=== PATIENT | female | born 1995 | race Caucasian/White ===

== ENCOUNTER 2023-01-02 14:46 | Emergency (ER) | payer OTHER, SELFPAY ==
--- NOTE | 2023-01-02 14:49 | DI.RAD.S_ITS ---
PROCEDURE: XR ANKLE LT MIN 3V INDICATIONS: fall, left ankle deformity. TECHNIQUE: 3 views of the ankle were acquired. COMPARISON: None. FINDINGS: Bones: Medial malleolar fracture with medial subluxation of the distal tibia over the dome of the talus by over 1 cm, resulting in ankle mortise disruption. Comminuted distal fibular metaphyseal fracture is also noted with angulation. Soft tissues: No tibiotalar joint effusion. Achilles tendon appears normal. IMPRESSION: Medial malleolar fracture, comminuted angulated distal fibular fracture, and lateral subluxation of the talus with complete ankle mortise disruption Approved by: Nba Leavitt M.D. on 01/02/2023 at 16:05
--- NOTE | 2023-01-02 14:50 | ED_ITS ---
HPI - General Adult General Chief complaint: Extremity Injury, Lower Stated complaint: fall from ladder/ LLE fx Time Seen by Provider: 01/02/23 14:47 Source: patient and EMS Mode of arrival: EMS Limitations: no limitations History of Present Illness HPI narrative: Patient is a 27-year-old female who is here for evaluation of a left ankle injury. She was brought in by EMS after sustaining the injury after falling approximately 6 ft off of a ladder. She is an obvious deformity to her left ankle. Was given fentanyl and ketamine prior to arrival. Only injuries from the event reported by the patient and found an exam of the left ankle. Related Data Home Medications Medication Instructions Recorded Confirmed norgestimate-ethinyl estradiol 1 tab PO DAILY 01/02/23 01/02/23 0.18 mg/0.215mg/0.25mg-35 mcg(28)tablet sertraline 100 mg tablet 100 mg PO DAILY 01/02/23 01/02/23 Previous Rx's Medication Instructions Recorded hydrocodone 5 mg-acetaminophen 325 1 tab PO Q4-6H PRN pain #14 tabs 01/02/23 mg tablet Allergies Allergy/AdvReac Type Severity Reaction Status Date / Time honey Allergy Verified 01/02/23 14:57 Review of Systems Musculoskeletal Musculoskeletal: Reports system reviewed and no additional complaints, except as documented Integumentary/Breasts Skin/Breast: Reports system reviewed and no additional complaints, except as documented Neurologic Neurologic: Reports system reviewed and no additional complaints, except as documented Patient History Social History Smoking Status: Never smoker Smoking Status: Never smoker Exam Initial Vital Signs Initial Vital Signs: Vital Signs Pulse Rate 81 01/02/23 14:51 Respiratory Rate 12 01/02/23 14:51 Blood Pressure 138/89 01/02/23 14:51 Pulse Oximetry 96 01/02/23 14:51 Oxygen Delivery Method Room Air 01/02/23 14:51 Const General: cooperative and No ill appearing HENMT Head: normal to inspection and normocephalic Resp Effort & Inspection: normal respiratory effort Cardio Pulses: dorsalis pedis present on the left Skin General: no rashes or lesions noted Neuro General: patient alert, patient awake and moves all extremities Extrem Other: Obvious deformity to left ankle. No discomfort with left proximal fibula. Procedures Orthopedic Splinting/Casting Injury #1: Side: left Lower Extremity Injury Location: ankle Lower Extremity Immobilizer: posterior splint and stirrup splint Other Orthopedic Equipment: crutches Post splinting neuro exam: intact Post splinting vascular exam: intact Placed by: Provider Course Orders Ordered: ED Orders 01/02/23 14:49 XR ankle LT min 3V Stat Discontinued Medications Hydromorphone HCl (Hydromorphone 1 Mg Inj) 1 mg IV NOW ONE Stop: 01/02/23 15:28 Last Admin: 01/02/23 15:32 Dose: 1 mg Documented By: ST Morphine Sulfate (Morphine 4 Mg/Ml Inj) 4 mg IV NOW ONE Stop: 01/02/23 14:56 Last Admin: 01/02/23 14:59 Dose: 4 mg Documented By: ST Vital Signs Vital signs: Vital Signs - 8 hr 01/02/23 14:51 01/02/23 14:52 01/02/23 14:53 Pulse Rate 81 86 Respiratory Rate 12 19 Blood Pressure 138/89 138/89 Pulse Oximetry 96 97 Oxygen Delivery Method Room Air 01/02/23 15:00 01/02/23 15:00 01/02/23 15:30 Pulse Rate 79 Respiratory Rate 20 Blood Pressure 139/86 114/71 Pulse Oximetry 100 Oxygen Delivery Method 01/02/23 15:30 01/02/23 16:00 Pulse Rate 76 76 Respiratory Rate 28 H 25 H Blood Pressure Pulse Oximetry 98 98 Oxygen Delivery Method Medical Decision Making Imaging Data Extremity x-ray #1: My Impression: Left ankle fracture MDM Narrative Medical decision making narrative: Patient did fall from a ladder. Only injuries are left ankle fracture. She is alert oriented x3. Not on blood thinners. Left ankle fracture splinted as described above. Patient was given return precautions and follow-up instr uctions. She expressed understanding and agreement. Discharge Plan Departure Patient Disposition: Home Clinical Impression: Ankle fracture, left Instructions: How to Use Crutches, DI for Ankle Fracture, How to Take Care of Your Splint Activity Restrictions/Additional Instructions: You do need to keep the splint on. You need to treat it like a cast and keep it clean and keep it dry. Do not walk on your left leg. Contact the Orthopedic Department at the number provided below for follow-up. Return to the emergency department for new symptoms. Prescriptions: New hydrocodone-acetaminophen 5-325 mg tablet 1 tab PO Q4-6H PRN (Reason: pain) Qty: 14 0RF No Action sertraline 100 mg tablet 100 mg PO DAILY norgestimate-ethinyl estradiol 0.18/0.215/0.25 mg-35 mcg (28) tablet 1 tab PO DAILY Referrals: Mary Banda MD [Physician] - Miscellaneous,MD Marquis [Primary Care Provider] - Stand Alone Forms: Patient Portal/API
[2023-01-02 14:51] VITALS: BP 138/89; PULSE 81; RESP 12; O2SAT 96; BMI 27.4
[2023-01-02 14:52] VITALS: BP 138/89
[2023-01-02 14:53] VITALS: PULSE 86; RESP 19; O2SAT 97
[2023-01-02] MEDS: MORPHINE 4 MG/ML INJ IV (14:59)
[2023-01-02 15:00] VITALS: BP 139/86; PULSE 79; RESP 20; O2SAT 100
[2023-01-02 15:30] VITALS: BP 114/71; PULSE 76; RESP 28; O2SAT 98
[2023-01-02] MEDS: HYDROMORPHONE 1 MG INJ IV (15:32)
[2023-01-02 16:00] VITALS: BP 108/71; PULSE 76; RESP 25; O2SAT 98
== END 2023-01-02 16:30 | disposition home or self-care (01) ==
PROVIDERS: Emergency Provider Emergency Medicine
DX: S82.832A Other fracture of upper and lower end of left fibula, initial encounter for closed fracture (principal); S82.52XA Displaced fracture of medial malleolus of left tibia, initial encounter for closed fracture; W11.XXXA Fall on and from ladder, initial encounter
CPT/HCPCS: 73610; 96374; 96375; 99283; 99284; J1170; J2270

== ENCOUNTER 2023-01-05 14:37 | Emergency (ER) | payer OTHER, SELFPAY ==
[2023-01-05] VITALS (23 sets, daily range): BP systolic 111–144; BP diastolic 67–89; PULSE 76–92; RESP 15–18; TEMP 36.5–36.7; O2SAT 96–99; BMI 27.4
--- NOTE | 2023-01-05 14:43 | DI.RAD.S_ITS ---
PROCEDURE: XR ANKLE LT MIN 3V INDICATIONS: known fx, sent by ortho to re-image, possible reduction TECHNIQUE: 3 views of the ankle were acquired. COMPARISON: [facility], , XR ANKLE LT MIN 3V, 01/02/2023, 15:02. FINDINGS: Bones: Comminuted displaced fracture of the distal tibia and fibula redemonstrated without significant interval change in alignment. Fiberglass splint material is present. Soft tissues: No tibiotalar joint effusion. Achilles tendon appears normal. IMPRESSION: Comminuted displaced bimalleolar fractures without significant change in alignment when compared to 01/02/2023. Approved by: Jasson Do M.D. on 01/05/2023 at 15:09
--- NOTE | 2023-01-05 14:51 | ED_ITS ---
HPI - General Adult General Chief complaint: Extremity Injury, Lower Stated complaint: lt foot reduce and rewrap/dr ref Time Seen by Provider: 01/05/23 14:43 Source: patient Mode of arrival: Wheelchair History of Present Illness HPI narrative: 27-year-old female nonsmoker was sent from the orthopedic office for evaluation of a recently fractured left ankle. She was seen and evaluated a few days ago and had an obvious fracture and was splinted, encouraged to follow up with Ortho, she states that her insurance took longer than expected to approve the referral and when she went to the office today they were unable to see her, stated that they wanted her sent back here for an attempt at reducing her ankle fracture dislocation. Related Data Home Medications Medication Instructions Recorded Confirmed norgestimate-ethinyl estradiol 1 tab PO DAILY 01/02/23 01/02/23 0.18 mg/0.215mg/0.25mg-35 mcg(28)tablet sertraline 100 mg tablet 100 mg PO DAILY 01/02/23 01/02/23 Previous Rx's Medication Instructions Recorded hydrocodone 5 mg-acetaminophen 325 1 tab PO Q4-6H PRN pain #14 tabs 01/02/23 mg tablet Allergies Allergy/AdvReac Type Severity Reaction Status Date / Time honey Allergy Verified 01/05/23 14:48 Review of Systems Review of Systems Narrative: GENERAL: Denies chills, fatigue, malaise, fever, sweats. HEENT: Denies sinus pain, ear pain, sore throat, difficulty swallowing, dizzi ness. RESPIRATORY: Denies dyspnea, cough, wheezing, hemoptysis, sputum. CARDIOVASCULAR: Denies chest pain, palpitations, orthopnea, edema, GASTROINTESTINAL: Denies nausea, vomiting, abdominal pain, diarrhea, constipation, melena. : Denies dysuria, frequency, incontinence, hematuria, urinary retention. MUSCULOSKELETAL: See HPI SKIN: Denies rash, skin lesions, or other NEUROLOGIC: See HPI PSYCHIATRIC: No concerning psychosocial issues. 12 point review of systems is negative except for those stated above Patient History Social History Smoking Status: Never smoker Smoking Status: Never smoker alcohol intake frequency: 0-2 drinks per day Substance Use Type: marijuana, crack/cocaine and hallucinogens Exam Narrative Exam Narrative: GENERAL: [27] year old patient appears stated age. Well-developed patient, in mild distress. HEAD: Atraumatic. Normocephalic. EYES: Pupils equal round and reactive. Extraocular motions intact. No scleral icterus. No injection or drainage. ENT: Nose without bleeding, purulent drainage. Throat without erythema, tonsillar hypertrophy or exudate. Airway patent. NECK: Trachea midline. Non tender CARDIOVASCULAR: Regular rate and rhythm without murmurs, gallops, or rubs. RESPIRATORY: Clear to auscultation. Breath sounds equal bilaterally. No wheezes, rales, or rhonchi. GASTROINTESTINAL: Abdomen soft, non-tender, nondistended. EXTREMITIES: Splinted, obvious deformity, closed, isolated and neurovascularly intact. When splint removed there is expected ecchymosis, it is closed, isolated, N/V in tact. 2 small fracture blisters noted over the medial malleolus BACK: Nontender without deformity or crepitance. No flank tenderness. NEURO: AOx3. SKIN: No rash or erythema of visible areas Initial Vital Signs Initial Vital Signs: Vital Signs Temperature 97.7 F 01/05/23 14:40 Pulse Rate 80 01/05/23 14:40 Respiratory Rate 15 01/05/23 14:40 Blood Pressure 117/74 01/05/23 14:40 Pulse Oximetry 97 01/05/23 14:40 Oxygen Delivery Method Room Air 01/05/23 14:40 Procedures Orthopedic Fracture Reduction Fracture #1: Time Out Performed: Yes Side: left Fracture Reduction Location: tibia and fibula Technique: direct manipulation and traction/counter-traction Post Reduction X-rays Demonstrate: acceptable reduction Post-reduction neuro exam: intact Post-reduction vascular exam: intact Splint Applied: Yes Patient Tolerated Procedure: Well Orthopedic Splinting/Casting Injury #1: Side: left Lower Extremity Injury Location: ankle Lower Extremity Immobilizer: posterior splint and stirrup splint Other Orthopedic Equipment: crutches Post splinting neuro exam: intact Post splinting vascular exam: intact Placed by: Provider Procedural Sedation Consent signed: Yes Time out performed: Yes Indication: fracture/dislocation reduction ASA Class: I Mallampati Airway Classification: Class II Preparation: information systems project manager applied, pulse oximeter, capnometry used, supplemental O2 applied, suction/airway equipment at bedside and IV secured IV Propofol dose (mg): 130 Intraservice time/total sedation time (min): 12 ED Sedation Level: Moderate (Concious) Patient Tolerated Procedure: Well Complications: none Course Orders Ordered: Discontinued Medications Propofol (Propofol 200 Mg/20 Ml Vial) 75 mg 1 mg/kg (75 mg) IV NOW ONE Stop: 01/05/23 15:56 Last Admin: 01/05/23 17:20 Dose: Not Given Documented By: SB Propofol (Propofol 200 Mg/20 Ml Vial) 110 mg IV NOW ONE Stop: 01/05/23 16:46 Last Admin: 01/05/23 17:29 Dose: 110 mg Documented By: SB Consultations Consultation #1: Discussed with ortho (Dr. Banda). We have reviewed the case, including post reduction films and agree that there is acceptable alignment with some improvment over prior Vital Signs Vital signs: Vital Signs - 8 hr 01/05/23 14:40 Temperature 97.7 F Pulse Rate 80 Respiratory Rate 15 Blood Pressure 117/74 Pulse Oximetry 97 Oxygen Delivery Method Room Air Medical Decision Making Lab Data Labs: Point of Care Testing Test Results Negative Point of care testing: Point of Care Testing Test Results Negative MDM Narrative Medical decision making narrative: [27] year old patient presents with left ankle fracture Multiple etiologies for patient's symptoms considered including, but not limited to: [Fracture with some dislocation versus other] Prior Charts reviewed in our EMR Primary Historian: patient Imaging reviewed: Some improved alignment after reduction Consultations: Discussed with ortho as noted above Patient's symptoms improved over duration of stay with above-stated therapies. Findings and discharge diagnosis discussed with patient/family followed by verbalization of understanding Return precautions discussed with patient/family whom verbalize understanding of diagnosis and plan Discharge Plan Departure Patient Disposition: Home Clinical Impression: Ankle fracture, left Instructions: DI for Ankle Fracture Activity Restrictions/Additional Instructions: *You have been diagnosed with [left ankle trimalleolar fracture] *What to do: *Please continue to take your regular medications as directed. [ ] New medication prescriptions sent to your pharmacy: [ ] [ ] New medication written as a paper prescription [x] Tylenol and occasional Motrin for pain *Please follow up with [Veronika] of [facility] in 2-3 days, call for an appointment. Let them know you were seen in the Emergency Department and that we ask that you be seen in follow up. We will electronically transmit a record of today's note if your PCP is in our system *Return to Emergency Department if you should have any new, worsening or concerning symptoms, such as [worsening pain, significant swelling, cold extremities, numbness, tingling, weakness or other bothersome symptoms Splint Care: Keep splint clean and dry. Elevated affected body part to decrease swelling. OK to use ice pack on the affected body part. Use for 15-20 minutes each time, for 5-6x per day. If you develop worsening pain, numbness, tingling, discoloration of the affected body part, loosen the splint by loosening the YUNIER wrap, and either see your doctor for an urgent re-assessment, or return to the Emergency Department. Return to the Emergency Department for any new or worsening symptoms. Prescriptions: No Action sertraline 100 mg tablet 100 mg PO DAILY norgestimate-ethinyl estradiol 0.18/0.215/0.25 mg-35 mcg (28) tablet 1 tab PO DAILY hydrocodone-acetaminophen 5-325 mg tablet 1 tab PO Q4-6H PRN (Reason: pain) Qty: 14 0RF Referrals: Miscellaneous,Doctor, [Primary Care Provider] - Stand Alone Forms: Patient Portal/API
--- NOTE | 2023-01-05 17:11 | DI.RAD.S_ITS ---
PROCEDURE: XR ANKLE LT MIN 3V INDICATIONS: post-reduction TECHNIQUE: 3 views of the ankle were acquired. COMPARISON: [facility], [place], XR ANKLE LT MIN 3V, 01/02/2023, 15:02. [facility], [place], XR ANKLE LT MIN 3V, 01/05/2023, 14:49. FINDINGS: Bones: There is a moderately displaced medial malleolar fracture. There is a comminuted, moderately displaced distal fibular fracture. The fractures are slightly better aligned on the current study than on the prior. There is widening of the syndesmosis and the ankle mortise. Soft tissues: Soft tissue swelling is seen. The overlying casting material limits evaluation of fine detail. IMPRESSION: Slightly improved alignment of the fractures. Dictated by: Panfilo Kuo M.D. on 01/05/2023 at 17:24 Approved by: Panfilo Kuo M.D. on 01/05/2023 at 17:25
[2023-01-05] MEDS: propofoL 200 MG/20 ML VIAL 110 MG IV (17:29)
== END 2023-01-05 18:06 | disposition home or self-care (01) ==
PROVIDERS: Emergency Provider Emergency Medicine
DX: S82.842A Displaced bimalleolar fracture of left lower leg, initial encounter for closed fracture (principal)
CPT/HCPCS: 27752; 29515; 73610; 81025; 99152; 99284; J2704

== ENCOUNTER → 2023-03-04 12:28 | Outpatient (CLI) | payer OTHER, SELFPAY ==
--- NOTE | 2023-03-04 12:53 | DI.CT.S_ITS ---
PROCEDURE: CT LE LT W CON INDICATIONS: Displaced bimalleolar fracture of left lower leg TECHNIQUE: Noncontrast 1-1.5 mm axial sections acquired from above the tibiotalar joint to the bottom of the calcaneus, with coronal and sagittal reformats. COMPARISON: [facility] [place], [place], XR ANKLE 3+ VIEWS LEFT, 02/22/2023, 14:43. [facility], CR, XR ANKLE LT MIN 3V, 01/02/2023, 15:02. [facility], [place], XR ANKLE LT MIN 3V, 01/05/2023, 17:09. FINDINGS: Image quality: Excellent. Bones: Expected appearance of ORIF of bimalleolar fractures. There are medial malleolar screws and side plate and multiple screw fixation of the distal fibula. There is a very subtle nondisplaced crack fracture of the talus which extends from the tibiotalar joint to the inferior articulation of the talus. Soft tissues: Unremarkable IMPRESSION: 1. Expected appearance of orthopedic surgical hardware, transfixing medial malleolar and distal fibular fractures. 2. Very subtle nondisplaced vertical crack fracture of the talus. Dictated by: Layo Dunn M.D. on 03/04/2023 at 19:55 Approved by: Layo Dunn M.D. on 03/04/2023 at 19:59
== END ==
PROVIDERS: Referring Provider Orthopaedic Surgery; Visit Provider Orthopaedic Surgery
DX: S82.842A Displaced bimalleolar fracture of left lower leg, initial encounter for closed fracture (principal); X58.XXXA Exposure to other specified factors, initial encounter
CPT/HCPCS: 73700

== ENCOUNTER 2023-04-20 12:28 | Day surgery (SDC) | payer OTHER, SELFPAY ==
[2023-04-17 14:06] VITALS: BMI 27.8
--- NOTE | 2023-04-20 | DI.RAD.S_ITS ---
PROCEDURE: XR ANKLE LT MIN 3V INDICATIONS: REVISION MALUNION LEFT ANKLE TECHNIQUE: Multiple frontal and lateral spot fluoroscopic intraoperative images of the left ankle. COMPARISON: [facility], CR, XR ANKLE 3 VIEWS WEIGHT BEARING LEFT, 03/21/2023, 14:45. [facility], [place], CT LE LT WO CON, 03/04/2023, 12:44. [facility], [place], XR ANKLE LT MIN 3V, 01/05/2023, 17:09. [facility], CR, XR ANKLE LT MIN 3V, 01/05/2023, 14:49. FINDINGS: Multiple fluoroscopic intraoperative images demonstrate postsurgical changes from revision fixation of the previously seen distal tibial and fibular fractures and talar fracture. Medial malleolar screws have been removed. Osseous alignment appears anatomic. IMPRESSION: Intraoperative images demonstrate changes from revision fixation of bimalleolar and talar fractures. Osseous alignment appears anatomic. Approved by: Jasson Do M.D. on 04/20/2023 at 22:05
--- NOTE | 2023-04-20 07:41 | P.HP_ITS ---
History of Present Illness History of Present Illness Date Patient Seen: 04/20/23 Time Patient Seen: 07:41 Chief complaint: Left ORIF Ankle Fracture Narrative: 27-year-old female status post right ankle fracture dislocation sustained January 02, 2023 when she fell 10-12 feet from window. She would a left ankle fracture dislocation and open reduction internal fixation with 1 of my partners on 01/09/2023. Due to the highly comminuted nature of the fracture there is some concern for obtaining alignment length of the fibula. She is been attempting to progress weight-bearing the walking boot but is having pain and relying on assistive devices. Most of her ankle pain is lateral and worse with weight- bearing. She was found to have talar osteochondral lesion and nondisplaced talar fracture and has an ankle malunion with shortening of the fibula. She is indicated for revision ankle open reduction internal fixation as well as addressing her talar osteochondral lesion and talar fracture. We discussed hardware removal and ankle revision. Patient understands would like to proceed with surgery. [facility] Medical History Closed left ankle fracture (01/02/23) Surgical History History of open reduction and internal fixation (ORIF) procedure (01/09/23) Social History household members: spouse Smoking Status: Never smoker alcohol intake: current Meds Home Medications and Allergies Home Medications Medication Instructions Recorded Confirmed Type sertraline 100 mg tablet 100 mg PO DAILY 01/02/23 04/20/23 History Allergies Allergy/AdvReac Type Severity Reaction Status Date / Time honey Allergy Verified 04/20/23 14:48 Review of Systems Review of Systems ROS: Yes All systems reviewed with the patient and are negative except as otherwise documented Exam Narrative Exam Narrative: General exam alert oriented no acute distress HEENT exam normocephalic atraumatic Heart regular rate and rhythm Lungs clear to auscultation Left lower extremity examination shows grossly normal alignment limited range of motion 5-30 degrees. Healed surgical scars. Mild swelling and tenderness to palpation anterolateral lateral ankle with deep aching pain. Calf is soft. Achilles intact. Decreased sensation along the superficial peroneal nerve distribution without specific Tinel's. Palpable dorsalis pedis pulse. No pain at the 5th metatarsal base. No pain at the proximal fibula. Assessment & Plan Assessment and plan (1) Closed fracture of left ankle with malunion: Status: Acute (2) Osteochondral lesion of talar dome: Status: Acute (3) Talus fracture: Status: Acute Plan The patient had a highly comminuted fibula fracture as part of her bimalleolar ankle fracture dislocation. Her surgical fixation was appropriate but she is 3- 4 mm short on her fibula and also has a traumatic osteochondral lesion of the talar dome this may have been a nondisplaced vertical lateral talus fracture it is not demonstrated on the initial radiographs that is seen subtly on the CT scan. OCL size 9 x 12 x 4 mm. I discussed the cartilage injury that occurred at the time of her injury as a risk factor to go onto faster and more progres sive posttraumatic arthritis. Discussed consideration of cartilage lesion repair with removal of unstable fragments and grafting. Discussed the risks for symptomatic posttraumatic arthritis. Also discussed hardware removal and malunion revision with fibular lengthening. Patient would like to proceed with surgery. The risks and benefits of the procedure have been discussed with the patient and given the opportunity to ask questions. The risks of surgery include but are not limited to infection, malunion, nonunion, persistence of pain, damage to nerves and blood vessels, posttraumatic arthritis, DVT, PE, coardiopulmonary complications and . The patient expressed a thorough understanding of the risks and benefits of surgery and has elected to proceed. Consent was signed. Assessment & Plan narrative: Patient has a left ankle malunion and talus fracture with osteochondral lesion. This was a highly comminuted fracture with a insidious talus fracture that was not evident except on the postoperative CT scan. She does now have irregularity that is demonstrated of the talar dome. She is indicated for ankle revision with fibular lengthening, syndesmotic revision and addressing the talus fracture and osteochondral lesion. She also has painful medial hardware is indicated for medial hardware removal. We discussed risks benefits and alternatives to the procedure. 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 She is indicated for revision surgery to reduce the risk of posttraumatic arthritis. We discussed using cartilage allograft. The risks and benefits of the procedure have been discussed with the patient and given the opportunity to ask questions. The risks of surgery include but are not limited to infection, malunion, nonunion, persistence of pain, damage to nerves and blood vessels, posttraumatic arthritis, DVT, PE, coardiopulmonary complications and . The patient expressed a thorough understanding of the risks and benefits of surgery and has elected to proceed. Consent was signed. Quality VTE Deep Vein Thrombosis/Pulmonary Embolism Present on Admission: No
[2023-04-20 14:57] VITALS: BP 114/78; PULSE 82; RESP 16; TEMP 36.2; O2SAT 98; BMI 27.8
[2023-04-20] MEDS: LACTATED RINGERS 1,000 ML 42 ML IV ×2 (15:20→17:00)
--- NOTE | 2023-04-20 16:13 | PM.OP.1 ---
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 Revision left ankle malunion with fibula osteotomy and fixation CPT code 53177, left 2. ORIF talus left CPT code 28111 3. Unlisted procedure left leg ankle CPT code 55065 compare with 36723 : Fixation osteochondral lesion left talus with cartilage allograft 4. Removal of deep implant left fibula CPT code 30532 5. Removal of implants left talus separate incision medial malleolar hardware removal CPT code 93305+ 59 for separate site separate incision Same procedure as scheduled: Yes Indications: Patient is a [age]-year-old female that had a highly comminuted ankle fracture part of an ankle fracture dislocation. She would a previous open reduction internal fixation by another surgeon. Due to the highly comminuted nature of her fibula fracture she had shortening and malunion as well as a traumatic osteochondral lesion of her lateral talar dome and nondisplaced talar fracture. This was originally not visible on plain imaging but irregularity of the cartilage surface became visible during postoperative followups and was determined on the CT scan. She was indicated for revision of her ankle malunion and addressing the talus fracture and osteochondral lesion. And fibular lengthening. A goal of revision face to help with the alignment address the cartilage lesion and reduce the risks of posttraumatic ankle arthritis. The patient understands that she does already have a cartilage lesion and has had intra-articular injury which are risk factors for posttraumatic arthritis. The risks and benefits of the procedure have been discussed with the patient and given the opportunity to ask questions. The risks of surgery include but are not limited to infection, malunion, nonunion, persistence of pain, damage to nerves and blood vessels, posttraumatic arthritis, DVT, PE, complications and . The patient expressed a thorough understanding of the risks and benefits of surgery and has elected to proceed. Consent was signed. Surgeon: Mary Banda Click Yes if Unassisted: Yes Anesthesia Type: General Operative Notes Findings: Left ankle malunion with shortened fibula. Nondisplaced vertical talus fracture with osteochondral lesion full-thickness cartilage loss lateral talus Medial ankle hardware, 2 screws was removed Lateral ankle hardware 2 plates and screws were removed. Fibula was shortened this was then lengthened through a oblique osteotomy there was copious scar tissue and callus in order to lengthen the fibula and expose the talus osteochondral lesion syndesmosis was formally opened to mobilize the distal fibula and provide visualization exposure to the lateral talar dome which demonstrate of the osteochondral lesion proximally 1 x 1 cm and full-thickness cartilage loss. The vertical talus fracture was nondisplaced and was reinforced with a 3.5 headless compression screw from the Arthrex set. The osteochondral lesion was then debrided to a stable base and drilled and then allograft morselized cartilage mixed with platelet rich plasma and placed into the lesion and sealed with fibrin glue. Then the fibula was lengthened. A locking plate from the Arthrex set was secured distally to the fibula then a push-pull screw was placed outside the plate proximally and a laminar wrecking crane engine operator was used to lengthen and this was secured with locking screws proximally. The syndesmosis was then secured using a suture button device and reinforced with a tricortical screw All implants used were titanium to facilitate future MRI should this patient require due to the known talus osteochondral lesions. Closure Type: primary Specimen(s): none sent Prosthetic devices, grafts, tissues, transplants, or devices: Fibula osteotomy and lengthening: Arthrex lateral locking plate 6 hole locking plate. 2.7 locking screws distally and 3.5 locking screws proximally. Syndesmotic fixation: Arthrex titanium tightrope Xp. 40 mm 3.5 titanium cortical screw Talus osteochondral lesion: Arthrex bio cartilage cartilage allograft mixed with platelet rich plasma and fibrin glue Talus fracture: 3.5 headless cannulated screw Estimated Blood Loss (mL): 20 Blood products transfused: none Tourniquet time (min): 112 Procedure in detail: Patient was seen in the preoperative area the site of surgery was marked informed consent confirmed. The patient was then brought back to the operating room by the anesthesia team. Regional block was placed for postoperative pain control by the anesthesia team. General anesthetic was administered. The bony prominences were well padded. Well-padded thigh tourniquet was placed. The operative extremity was prepped and draped in the standard sterile fashion. A formal time-out procedure was performed confirming the patient's side and site of surgery administration of appropriate preoperative antibiotic. All were in agreement. Attention was turned to the left lower extremity. Medial malleolar hardware removal: Attention was 1st turned medially in the medial incision over the medial malleolus was reopened. Dissection was taken through the skin subcutaneous tissues. Bovie cautery was used to help remove the scar tissue over the 4.0 cannulated screws. The anterior and posterior screw were then exposed and the screwdriver used to remove the screws. Once this was completed the wound was irrigated and closed with 4-0 Monocryl and 3-0 nylon suture. Next attention was turned laterally and the previous lateral incision was extended more distally and curved anteriorly and extended proximally. The keloid scar was excised. Dissection was taken down through the subcutaneous tissues there was copious scar. The fibula and plates were exposed using the Bovie cautery and sharp debridement. There was an anterior and a posterior lateral plate. These were exposed and appropriate screwdrivers were used to remove the anterior and posterolateral plates that were from the [employer] set. All hardware was removed. Next attention was turned to the fibular malunion this was shortened TTS saw was used to make an oblique osteotomy and a sharp scalpel as well as the osteotomes were used to free up the distal fibula and dissect the syndesmosis as the distal fibula was otherwise not mobile. The dissection was carried anteriorly to formally open and debride the syndesmosis this also exposed the lateral tibiotalar joint and the large lateral talar dome osteochondral lesion was visualized. This included full-thickness cartilage loss proximally 1 cm x 1 cm. The talus vertical fracture was nondisplaced. This was secured with a 3.5 cannulated screw from the Arthrex set from a lateral to medial direction to act as a compressive reinforcement. Next attention was turned to the osteochondral lesion this was debrided to a stable base along the cartilage and the exposed subchondral bone was debrided and then drilled to stimulate blood flow. The cartilage allograft was mixed with platelet rich plasma which was drawn from the patient's blood and spun down to growth factors. This was then placed in the bed of the osteochondral lesion with care to make sure this was not proud. This was then sealed with Tisseel fibrin glue. 5 minute drying time was allowed to elapse and the fixation was stable and matched the contour of the talar dome and tibial plafond. Next attention was turned to fixing the fibular lengthening osteotomy and ankle malunion. The lateral locking fibular plate from the Arthrex set was selected this was a 6 hole plate this was secured distally to the distal fibula with a BB tack and then locking screws that were 2.7. Next proximally a cortical screw was placed in the fibula proximal to the plate end and left proud. The toothed lamina wrecking crane engine operator was placed in between the screw and the plate and used to distract and provide lengthening through the osteotomy. This was done repeatedly working on gaining length of the fibula. Proximally 3-4 mm was able to be obtained and this was secured 1st with a BB tack and then with locking screws proximally to hold the lengthening. This was scrutinized under multiple plane intraoperative fluoroscopy for length and alignment to restore the mortise and fibular length and dime signed as best as I could. There was a lot of scarring in length was difficult to obtain. Once I felt I got all the length that I could get and the x-ray was appropriate the fixation was finalized. Next the syndesmosis was open reduced and clamped using a Polanco clamp after thumb pressure. This was then secured with a suture button device and reinforced proximally with a tricortical screw due to the gross debridement of the syndesmosis for the procedure. Final fluoroscopic x-rays were obtained in AP mortise lateral and stress x-rays demonstrated appropriate alignment length mortise and improvement in the contours of the talar dome. Instruments were removed the wound was irrigated tourniquet was released and the wound was closed with 2-0 Vicryl 4-0 Monocryl and 3-0 nylon sutures. Additional 10 cc of 0.25% Marcaine with epinephrine was injected for local anesthetic. A sterile dressing with Xeroform gauze and Webril and posterior and U splint was applied. Patient was woken from anesthesia and taken to the recovery room in good condition. There were no immediate complications with this procedure. All counts were correct. Complications: none Post-operative Condition: stable Disposition: PACU Plan for aftercare: Nonweightbearing x6 weeks. Elevate heart level or above as much as possible 1st 2 weeks after surgery. Splint. Aspirin for DVT prophylaxis. Follow up in clinic in 2 weeks for suture removal and placement into a walking boot. Patient will be nonweightbearing for 6 weeks but may start some gentle range of motion once removed from the splint.
[2023-04-20] MEDS: CEFAZOLIN 2 GM/100 ML PREMIX 100 ML IV (16:23)
--- NOTE | 2023-04-20 16:37 | SUR.PREOP ---
Block start time [1559] . Monitoring initiated and maintained throughout procedure. Oxygen and medications given per anesthesiologist. Patient remained stable throughout procedure, no adverse reactions noted. Block end time [1616 ].
--- NOTE | 2023-04-20 16:51 | SUR.OPER ---
Supine on padded OR bed, head on pillow, arms secured on padded arm boards at <90 degrees abduction, legs uncrossed, safety belt at waist , tape over blanket over lower right leg, left leg draped free with gel bump under left hip, blanket stack secured under left lower leg.
[2023-04-20] MEDS: BUPIVACAINE 0.25% (PF) 30 ML, EPINEPHrine 0.15 MG INJ (17:01)
[2023-04-20 19:07] VITALS: BP 95/40; PULSE 87; RESP 10; TEMP 36.7; O2SAT 100
[2023-04-20 19:12] VITALS: BP 91/47; PULSE 95; RESP 18; O2SAT 100
[2023-04-20 19:17] VITALS: BP 107/40; PULSE 94; RESP 16; O2SAT 100
[2023-04-20 19:32] VITALS: BP 105/69; PULSE 91; RESP 20; O2SAT 100
[2023-04-20 19:47] VITALS: BP 111/68; PULSE 88; RESP 15; TEMP 36.3; O2SAT 100
== END 2023-04-20 19:55 | disposition home or self-care (01) ==
PROVIDERS: PCP Family Medicine; Referring Provider Orthopaedic Surgery Foot and Ankle Surgery; Visit Provider Orthopaedic Surgery Foot and Ankle Surgery
PROC: (CPT 28445; principal; 2023-04-20 13:45)
DX: S82.892P Other fracture of left lower leg, subsequent encounter for closed fracture with malunion (principal); M95.8 Other specified acquired deformities of musculoskeletal system; S92.125A Nondisplaced fracture of body of left talus, initial encounter for closed fracture; G89.18 Other acute postprocedural pain
CPT/HCPCS: 28445; 20680 ×2; 27707; 28899; 64450; 73610; 76000; C1713; J0171; J0330; J0690; J2250; J2704; J3010

== ENCOUNTER 2023-07-25 14:31 | Emergency (ER) | payer OTHER, SELFPAY ==
[2023-07-25] VITALS (9 sets, daily range): BP systolic 97–116; BP diastolic 64–76; PULSE 80–89; RESP 18; TEMP 37.1; O2SAT 92–100; BMI 28.3
--- NOTE | 2023-07-25 14:49 | DI.US.S_ITS ---
PROCEDURE: US OB <= 14 WEEKS FETUS INDICATIONS: CRAMPING OUTSIDE/PRIOR DATING DATA: Last menstrual period (LMP): Unknown LMP-based estimated date of delivery (LIBIA): Unknown First dating scan (date and location): 07/25/2023 Estimated date of delivery (LIBIA) from first dating scan: 03/06/2024 The calculations are made using the working LIBIA of 03/06/2024. TECHNIQUE: Real-time scanning was performed of the fetus and maternal pelvic organs, with image documentation. Endovaginal scanning was also performed to better visualize the fetus and maternal ovaries. COMPARISON: None. FINDINGS: Embryo: Single intrauterine gestational sac is seen with fetus and yolk sac seen. [place]-rump length measures 1.5 cm. Estimated gestational age is 7 weeks, 6 days. Heart rate: 155 beats per minute. There is suggestion of a small perigestational hematoma measures 2.8 x 1.1 x 0.1 cm in size. Maternal organs: Bilateral ovaries are visualized and are within normal limits. Possible small corpus luteum in left ovary is seen measures 0.9 cm in size. IMPRESSION: 1. Single live intrauterine gestation with fetus and yolk sac seen. Estimated gestational age is 7 weeks, 6 days. heart rate is 155 beats per minute. 2. Possible small perigestational hematoma as above. Possible small corpus luteal cyst in left ovary. We strive to produce accurate, complete, and clear reports of imaging services. To assist us in improving patient care, this report was composed using standard report templates and voice recognition software. Therefore, it may contain abnormal punctuation, insertions and/or omissions. Occasional wrong-word or sound-alike substitutions may occur. Though we review the report and make efforts to correct it, we do recommend that the report be read carefully in proper context to recognize any text inaccuracies. Dictated by: Adonay John M.D. on 07/25/2023 at 16:21 Approved by: Adonay John M.D. on 07/25/2023 at 16:22
[2023-07-25 15:16] LABS: Add Manual Diff / Slide Review NO; Basophils Absolute Auto 0 /uL (0-100); Basophils Percent Auto 0.4 % (0-2); Eosinophils Absolute Auto 100 /uL (0-450); Eosinophils Percent Auto 1.9 % (2-4); Hematocrit 37.5 % (36-46); Hemoglobin 13.1 g/dL (12.0-16.0); Lymphocytes Absolute Auto 2200 /uL (1100-4500); Lymphocytes Percent Auto 30.1 % (25-40); Mean Corpuscular HGB Conc 34.8 % (30-36); Mean Corpuscular Hemoglobin 32.4 PG (26-34); Monocytes Absolute Auto 500 /uL (0-900); Monocytes Percent Auto 7.4 % (3-14); Neutrophils Absolute Auto 4400 /uL (1500-7000); Neutrophils Percent Auto 60.2 % (50-75); Platelet Count 286 X10^3/uL (150-400); Red Blood Cell Count 4.03 X10^6/uL (4.0-5.2); Red Cell Distribution Width 12.7 % (11.6-14.8); White Blood Cell Count 7.3 X10^3/uL (4.5-11.0)
[2023-07-25 15:16] LABS: Appearance Urine UA CLEAR; Bilirubin Urine UA NEGATIVE (NEGATIVE); Color Urine UA YELLOW; Glucose Urine UA NEGATIVE (Negative); Ketones Urine UA NEGATIVE (NEGATIVE); Leukocyte Esterase Urine UA NEGATIVE (NEGATIVE); Nitrite Urine UA NEGATIVE (Negative); Occult Blood Urine UA NEGATIVE (Negative); Protein Urine UA NEGATIVE (Negative); Urobilinogen Urine UA 0.2 E.U./dL (0.2)
[2023-07-25 15:21] LABS: pH Urine UA 7.5 (4.5-8.0)
[2023-07-25 15:24] LABS: Bacteria Urine None Seen; RBC Urine None Seen (0-5/HPF); Squamous Epithelial Cell Urine 0-1 /HPF (0-5/HPF); Urine Volume 10mL (spun); WBC Urine None Seen (0-5/HPF)
[2023-07-25 15:25] LABS: Culture Indicated Urine Cult Not Indicated; Transitional Epi Cells Urine 0-1/HPF (0-5/HPF)
--- NOTE | 2023-07-25 15:36 | PC.NURSE ---
Pt placed in tx room at 1535.
[2023-07-25 15:37] LABS: Alanine Aminotransferase 14 IU/L (<35); Albumin 4.7 g/dL (3.5-5.0); Albumin Globulin Ratio 1.3 (1.0-2.8); Alkaline Phosphatase 62 U/L (38-126); Aspartate Aminotransferase 21 IU/L (14-36); BUN Creatinine Ratio 10.2 (6-22); Bilirubin Total 0.5 mg/dL (0.2-1.3); Blood Urea Nitrogen 5 mg/dL (7-17); Calcium 9.2 mg/dL (8.4-10.2); Carbon Dioxide 27 mmol/L (22-32); Chloride 103 mmol/L (98-107); Estimated Glomerular Filt Rate > 60 mL/min (>60); Globulin 3.6 g/dL (1.7-4.1); Glucose 91 mg/dL (70-100); HEMOLYSIS < 15 (0-50); Potassium 3.8 mmol/L (3.4-5.1); Sodium 135 mmol/L (137-145); Total Protein 8.3 g/dL (6.3-8.2)
[2023-07-25 16:24] LABS: HCG Quantitative /Beta subunit 38880 mIU/mL
--- NOTE | 2023-07-25 18:02 | ED_ITS ---
HPI - General Adult General Chief complaint: OB/Uterine Contractions Stated complaint: , severe cramps Time Seen by Provider: 07/25/23 15:09 Source: patient Mode of arrival: Ambulatory History of Present Illness HPI narrative: Patient is a at unknown dates who has a follow-up appointment next week for her 1st OB appointment to is here for evaluation of approximately 24 hours of cramping and vaginal bleeding. No diarrhea. No vomiting. She is taking vitamins. She does have nausea medication at home. No fevers. Related Data Home Medications Medication Instructions Recorded Confirmed sertraline 100 mg tablet 100 mg PO DAILY 01/02/23 04/20/23 Previous Rx's Medication Instructions Recorded ondansetron 4 mg disintegrating 4 mg PO Q8H PRN nausea and 04/20/23 tablet vomiting #5 tabs oxycodone 5 mg tablet 5 mg PO Q4H PRN pain #40 tabs 04/20/23 Allergies Allergy/AdvReac Type Severity Reaction Status Date / Time honey Allergy Verified 04/20/23 14:48 Review of Systems Constitutional Constitutional: Reports system reviewed and no additional complaints, except as documented Gastrointestinal Gastrointestinal: Reports system reviewed and no additional complaints, except as documented Genitourinary Genitourinary: Reports system reviewed and no additional complaints, except as documented Integumentary/Breasts Skin/Breast: Reports system reviewed and no additional complaints, except as documented Neurologic Neurologic: Reports system reviewed and no additional complaints, except as documented Patient History Medical History Closed left ankle fracture (01/02/23) Surgical History History of open reduction and internal fixation (ORIF) procedure (01/09/23) Social History household members: spouse Smoking Status: Never smoker alcohol intake: current Smoking Status: Never smoker alcohol intake frequency: a few times a week Substance Use Type: does not use Exam Initial Vital Signs Initial Vital Signs: Vital Signs Temperature 98.7 F 07/25/23 14:34 Pulse Rate 87 07/25/23 14:34 Respiratory Rate 18 07/25/23 14:34 Blood Pressure 116/76 07/25/23 14:34 Pulse Oximetry 99 07/25/23 14:34 Oxygen Delivery Method Room Air 07/25/23 14:34 Const General: cooperative, comfortable and No ill appearing HENMT Head: normal to inspection and normocephalic Resp Effort & Inspection: normal respiratory effort Cardio Rate: regular rate GI Inspection: normal to inspection and non-distended Skin General: no rashes or lesions noted Neuro General: patient alert, patient awake and moves all extremities Course Orders Ordered: ED Orders 07/25/23 14:40 Urinalysis and Microscopic Stat 07/25/23 14:49 US OB <= 14 weeks fetus Stat 07/25/23 15:02 ABO RH Type Stat Complete Blood Count AUTO DIFF Stat Comprehensive Metabolic Panel Stat HCG Quantitative /Beta subunit Stat Vital Signs Vital signs: Vital Signs - 8 hr 07/25/23 16:28 07/25/23 16:29 07/25/23 16:29 Pulse Rate 80 80 Blood Pressure 112/64 Pulse Oximetry 92 97 07/25/23 16:30 07/25/23 16:31 07/25/23 16:31 Pulse Rate 89 84 Blood Pressure 114/67 Pulse Oximetry 97 97 07/25/23 17:00 07/25/23 17:00 07/25/23 17:30 Pulse Rate 83 85 Blood Pressure 104/66 Pulse Oximetry 99 100 07/25/23 17:30 07/25/23 18:00 07/25/23 18:01 Pulse Rate 87 85 Blood Pressure 97/68 Pulse Oximetry 99 98 07/25/23 18:01 Pulse Rate Blood Pressure 112/75 Pulse Oximetry Medical Decision Making Lab Data Lab results reviewed: Yes I reviewed the patient's lab results. 07/25/23 15:02 07/25/23 15:02 Labs: Lab Results 07/25/23 07/25/23 Range/Units 14:40 15:02 WBC 7.3 (4.5-11.0) X10^3/uL RBC 4.03 (4.0-5.2) X10^6/uL Hgb 13.1 (12.0-16.0) g/dL Hct 37.5 (36-46) % MCV 93.0 (80-100) fL MCH 32.4 (26-34) PG MCHC 34.8 (30-36) % RDW 12.7 (11.6-14.8) % Plt Count 286 (150-400) X10^3/uL Neut % (Auto) 60.2 (50-75) % Lymph % (Auto) 30.1 (25-40) % [place] % (Auto) 7.4 (3-14) % Eos % (Auto) 1.9 L (2-4) % Baso % (Auto) 0.4 (0-2) % Neut # (Auto) 4400 (4149-3121) /uL Lymph # (Auto) 2200 (0133-7995) /uL [place] # (Auto) 500 (0-900) /uL Eos # (Auto) 100 (0-450) /uL Baso # (Auto) 0 (0-100) /uL Sodium 135 L (137-145) mmol/L Potassium 3.8 (3.4-5.1) mmol/L Chloride 103 (98-107) mmol/L Carbon Dioxide 27 (22-32) mmol/L BUN 5 L (7-17) mg/dL Creatinine 0.49 L (0.52-1.04) mg/dL Estimated GFR > 60 (>60) mL/min BUN/Creatinine Ratio 10.2 (6-22) Glucose 91 (70-100) mg/dL Calcium 9.2 (8.4-10.2) mg/dL Total Bilirubin 0.5 (0.2-1.3) mg/dL AST 21 (14-36) IU/L ALT 14 (<35) IU/L Alkaline Phosphatase 62 (38-126) U/L Total Protein 8.3 H (6.3-8.2) g/dL Albumin 4.7 (3.5-5.0) g/dL Globulin 3.6 (1.7-4.1) g/dL Albumin/Globulin Ratio 1.3 (1.0-2.8) HCG, Quant 46065 mIU/mL Urine Color Yellow Urine Appearance Clear Urine pH 7.5 (4.5-8.0) Ur Specific [place] 1.010 (1.000-1.035) Urine Protein Negative (Negative) Urine Glucose (UA) Negative (Negative) g/dL Urine Ketones Negative (NEGATIVE) Urine Occult Blood Negative (Negative) Urine Nitrate Negative (Negative) Urine Bilirubin Negative (NEGATIVE) Urine Urobilinogen 0.2 (0.2) E.U./dL Ur Leukocyte Esterase Negative (NEGATIVE) Urine RBC None seen (0-5/HPF) Urine WBC None seen (0-5/HPF) Ur Squamous Epith Cells 0-1 /hpf (0-5/HPF) Ur Transition Epith Cell 0-1/hpf (0-5/HPF) Urine Bacteria None seen (None) Ur Culture Indicated? Cult not indicated Vol Urine Centrifuged 10ml (spun) Blood Type O Positive Imaging Data US - OB: Radiologist's Impression: PROCEDURE: US OB <= 14 WEEKS FETUS INDICATIONS: CRAMPING OUTSIDE/PRIOR DATING DATA: Last menstrual period (LMP): Unknown LMP-based estimated date of delivery (LIBIA): Unknown First dating scan (date and location): 07/25/2023 Estimated date of delivery (LIBIA) from first dating scan: 03/06/2024 The calculations are made using the working LIBIA of 03/06/2024. TECHNIQUE: Real-time scanning was performed of the fetus and maternal pelvic organs, with image documentation. Endovaginal scanning was also performed to better visualize the fetus and maternal ovaries. COMPARISON: None. FINDINGS: Embryo: Single intrauterine gestational sac is seen with fetus and yolk sac seen. [place]-rump length measures 1.5 cm. Estimated gestational age is 7 weeks, 6 days. Heart rate: 155 beats per minute. There is suggestion of a small perigestational hematoma measures 2.8 x 1.1 x 0.1 cm in size. Maternal organs: Bilateral ovaries are visualized and are within normal limits. Possible small corpus luteum in left ovary is seen measures 0.9 cm in size. IMPRESSION: 1. Single live intrauterine gestation with fetus and yolk sac seen. Estimated gestational age is 7 weeks, 6 days. heart rate is 155 beats per minute. 2. Possible small perigestational hematoma as above. Possible small corpus luteal cyst in left ovary. MDM Narrative Medical decision making narrative: Patient is Rh positive. Ultrasound shows single intrauterine with heart rate. No indication of a urinary tract infection. She has vitamins nausea medicine and already established with OB. We discussed the ultrasound today. We did discuss her bleeding today. Discussed return precautions and follow-up instructions. She expressed understanding and agreement with plan. Discharge Plan Departure Patient Disposition: Home Clinical Impression: Threatened miscarriage Instructions: Threatened Miscarriage Activity Restrictions/Additional Instructions: Recommend that you continue with your vitamins. Keep your scheduled appointment with your OB provider next week. Return to the emergency department for new or worsening symptoms like we discussed. Prescriptions: No Action sertraline 100 mg tablet 100 mg PO DAILY oxycodone 5 mg tablet 5 mg PO Q4H PRN (Reason: pain) Qty: 40 0RF Rx Instructions: Postop exempt ondansetron 4 mg tablet,disintegrating 4 mg PO Q8H PRN (Reason: nausea and vomiting) Qty: 5 1RF Referrals: Jeanie Samayoa MD [Primary Care Provider] - Stand Alone Forms: Patient Portal/API
== END 2023-07-25 18:27 | disposition home or self-care (01) ==
PROVIDERS: Emergency Medicine; Emergency Provider Emergency Medicine; PCP Family Medicine
DX: O20.0 Threatened abortion (principal); Z3A.01 Less than 8 weeks gestation of pregnancy
CPT/HCPCS: 36415; 76801; 76817; 80053; 81001; 84702; 85025; 86900; 86901; 99283

== ENCOUNTER 2024-01-28 18:14 | Emergency (ER) | payer OTHER, SELFPAY ==
[2024-01-28] VITALS (8 sets, daily range): BP systolic 112–127; BP diastolic 59–87; PULSE 90–110; RESP 16–18; TEMP 36.2; O2SAT 96–97; BMI 29.9
[2024-01-28] MEDS: SODIUM CHLORIDE 0.9% 1,000 ML 1000 ML IV ×2 (18:37→19:46)
--- NOTE | 2024-01-28 19:13 | ED.URI ---
HPI - URI/Sore Throat General Chief Complaint: Upper Respiratory Symptoms Stated Complaint: coughing, vomiting 34wks Time Seen by Provider: 01/28/24 19:13 History of Present Illness HPI Narrative: 28-year-old female currently 34 weeks gestation, SAB 8, with EDC 03/07/2024, care through [facility] Dr. Melissa, awaiting next care visit 02/05/2024, also awaiting outpatient ultrasound brittney Babcock this in 3 days, now with 3 days duration of cough productive of clear sputum, some chest discomfort with coughing. No abdominal cramping, no leaking of fluid, no vaginal bleeding symptoms. Baby feels like it is moving. Related Data Home Medications Medication Instructions Recorded Confirmed sertraline 100 mg tablet 100 mg PO DAILY 01/02/23 04/20/23 Previous Rx's Medication Instructions Recorded ondansetron 4 mg disintegrating 4 mg PO Q8H PRN nausea and 04/20/23 tablet vomiting #5 tabs oxycodone 5 mg tablet 5 mg PO Q4H PRN pain #40 tabs 04/20/23 Allergies Allergy/AdvReac Type Severity Reaction Status Date / Time honey Allergy Verified 04/20/23 14:48 Review of Systems Review of Systems Narrative: see HPI Patient History Medical History Closed left ankle fracture (01/02/23) Surgical History History of open reduction and internal fixation (ORIF) procedure (01/09/23) Social History household members: spouse Smoking Status: Never smoker alcohol intake: current Smoking Status: Never smoker alcohol intake frequency: a few times a week Substance Use Type: does not use Exam Narrative Exam Narrative: GENERAL: Well-developed patient, in mild distress. HEAD: Atraumatic. Normocephalic. EYES: Pupils equal round and reactive. Extraocular motions intact. No scleral icterus. No injection or drainage. ENT: Nose without bleeding, purulent drainage. Throat without erythema, tonsillar hypertrophy or exudate. Airway patent. NECK: Trachea midline. Non tender CARDIOVASCULAR: Regular rate and rhythm without murmurs, gallops, or rubs. RESPIRATORY: Clear to auscultation. Breath sounds equal bilaterally. No wheezes, rales, or rhonchi. GASTROINTESTINAL: Gravid abdomen, Abdomen soft, non-tender, nondistended. heart tones present 166 rate noted by RN. EXTREMITIES: No edema or joint tenderness. BACK: Nontender without deformity or crepitance. No flank tenderness. NEURO: AOx3. Mental status grossly nonfocal SKIN: No rash or erythema of visible areas Initial Vital Signs Initial Vital Signs: Vital Signs Temperature 97.1 F L 01/28/24 18:20 Pulse Rate 110 H 01/28/24 18:20 Respiratory Rate 18 01/28/24 18:20 Blood Pressure 127/87 01/28/24 18:20 Pulse Oximetry 97 01/28/24 18:20 Oxygen Delivery Method Room Air 01/28/24 18:20 Course Orders Ordered: ED Orders 01/28/24 18:30 Respiratory Panel (Film Array) Stat 01/28/24 18:40 CBC Auto Diff [Complete Blood Count AUTO DIFF] Stat CMP [Comprehensive Metabolic Panel] Stat Discontinued Medications Albuterol (Albuterol Hfa Prepack) 1 box MISC DIRECTED ONE Stop: 01/28/24 19:37 Last Admin: 01/28/24 19:50 Dose: 1 box Documented By: BEATRIZ Sodium Chloride (Normal Saline 0.9%) 1,000 mls @ 1,000 mls/hr IV BOLUS ONE Stop: 01/28/24 19:29 Last Infusion: 01/28/24 20:20 Dose: Infused Documented By: Admin: 01/28/24 18:37 Dose: 1,000 mls/hr Documented By: JEYSON Sodium Chloride (Normal Saline 0.9%) 1,000 mls @ 1,000 mls/hr IV BOLUS ONE Stop: 01/28/24 20:29 Last Infusion: 01/28/24 21:00 Dose: Infused Documented By: Admin: 01/28/24 19:46 Dose: 1,000 mls/hr Documented By: JEYSON Ondansetron HCl (Ondansetron 4 Mg/2 Ml Inj) 4 mg IV NOW ONE Stop: 01/28/24 19:32 Last Admin: 01/28/24 19:46 Dose: 4 mg Documented By: JEYSON Vital Signs Vital signs: Vital Signs - 8 hr 01/28/24 18:52 01/28/24 19:00 01/28/24 19:30 Pulse Rate 102 H 103 H 96 H Respiratory Rate Blood Pressure Pulse Oximetry 97 96 96 Oxygen Delivery Method 01/28/24 19:48 01/28/24 19:48 01/28/24 20:00 Pulse Rate 97 H Respiratory Rate Blood Pressure 116/69 117/70 Pulse Oximetry 97 Oxygen Delivery Method 01/28/24 20:00 01/28/24 20:30 01/28/24 20:30 Pulse Rate 94 H 93 H Respiratory Rate Blood Pressure 112/59 L Pulse Oximetry 96 97 Oxygen Delivery Method 01/28/24 21:01 Pulse Rate 90 Respiratory Rate 16 Blood Pressure 119/62 Pulse Oximetry 97 Oxygen Delivery Method Room Air MDM - URI/Sore Throat Lab Data Attestation: I reviewed the patient's lab results. 01/28/24 18:40 01/28/24 18:40 Labs: Lab Results 01/28/24 01/28/24 Range/Units 18:30 18:40 WBC 12.1 H (4.5-11.0) X10^3/uL RBC 4.19 (4.0-5.2) X10^6/uL Hgb 13.5 (12.0-16.0) g/dL Hct 39.8 (36-46) % MCV 95.0 (80-100) fL MCH 32.2 (26-34) PG MCHC 33.9 (30-36) % RDW 14.2 (11.6-14.8) % Plt Count 219 (150-400) X10^3/uL Neut % (Auto) 71.7 (50-75) % Lymph % (Auto) 18.2 L (25-40) % [place] % (Auto) 7.7 (3-14) % Eos % (Auto) 2.0 (2-4) % Baso % (Auto) 0.4 (0-2) % Neut # (Auto) 8700 H (6766-4677) /uL Lymph # (Auto) 2200 (9196-2613) /uL [place] # (Auto) 900 (0-900) /uL Eos # (Auto) 200 (0-450) /uL Baso # (Auto) 0 (0-100) /uL Sodium 134 L (137-145) mmol/L Potassium 3.9 (3.4-5.1) mmol/L Chloride 107 (98-107) mmol/L Carbon Dioxide 19 L (22-32) mmol/L BUN 4 L (7-17) mg/dL Creatinine 0.45 L (0.52-1.04) mg/dL Estimated GFR > 60 (>60) mL/min BUN/Creatinine Ratio 8.9 (6-22) Glucose 82 (70-100) mg/dL Calcium 9.2 (8.4-10.2) mg/dL Total Bilirubin 0.6 (0.2-1.3) mg/dL AST 29 (14-36) IU/L ALT 22 (<35) IU/L Alkaline Phosphatase 126 (38-126) U/L Total Protein 7.4 (6.3-8.2) g/dL Albumin 4.0 (3.5-5.0) g/dL Globulin 3.4 (1.7-4.1) g/dL Albumin/Globulin Ratio 1.2 (1.0-2.8) Chlamy pneumoniae PCR Not detected (Not Detect) Adenovirus (PCR) Not detected (Not Detect) B. pertussis DNA (PCR) Not detected (Not Detect) B.parapertussis DNA PCR Not detected (Not Detecte) Coronavirus OC43 (PCR) Not detected (Not Detect) Coronavirus HKU1 (PCR) Not detected (Not Detect) Coronavirus 229E (PCR) Not detected (Not Detect) SARS-CoV-2 (PCR) Not detected (Not Detecte) Coronavirus NL63 (PCR) Not detected (Not Detect) Human Metapneumovir PCR Not detected (Not Detect) Influenza Type A (PCR) Not detected (Not Detect) Influenza Type B (PCR) Not detected (Not Detect) M. pneumoniae (PCR) Not detected (Not Detect) Parainfluenza 1 (PCR) Not detected (Not Detect) Parainfluenza 2 (PCR) Not detected (Not Detect) Parainfluenza 3 (PCR) Not detected (Not Detect) Parainfluenza 4 (PCR) Not detected (Not Detect) RSV (PCR) Not detected (Not Detect) Entero/Rhino (PCR) Detected H (Not Detect) MDM Narrative Medical decision making narrative: 28-year-old female current 34 weeks gestation with 3 days duration cough, nausea, some chest discomfort with cough, triage heart rate 110 noted, some nausea. IV fluid bolus. IV Zofran. Labs pending. Respiratory panel swab was sent. No symptoms of contractions or cramping or bleeding or leaking of fluid. Respiratory panel positive for rhinovirus, otherwise negative. Patient informed, no antivirals available, self-limited, supportive care indicated. IV fluid infusing. Symptoms improved, dispensed with albuterol/spacer to help with cough control symptoms. Follow up with care provider as planned. Return precautions discussed. With family Discharge Plan Departure Patient Disposition: Home Clinical Impression: Rhinovirus infection, Upper respiratory infection, Activity Restrictions/Additional Instructions: Current 34 weeks' gestation reported, 3 days duration cough, normal oxygenation, lung exam normal, increased heart rate noted, IV fluid bolus given. No symptoms suggestive of vaginal bleeding or leaking of fluids, or labor like contractions. heart tone at triage noted present. Respiratory panel swab was positive for rhino virus, otherwise negative for influenza and COVID and other pathogens tested. Improvement of symptoms with IV fluids. Trial of inhaler to help with cough control symptoms, with spacer as needed. Follow up with your care visit as planned 02/05/2024, and with your upcoming ultrasound. Return earlier to this/nearest emergency department for any change worsening symptoms or any concerns prior Prescriptions: No Action sertraline 100 mg tablet 100 mg PO DAILY oxycodone 5 mg tablet 5 mg PO Q4H PRN (Reason: pain) Qty: 40 0RF Rx Instructions: Postop exempt ondansetron 4 mg tablet,disintegrating 4 mg PO Q8H PRN (Reason: nausea and vomiting) Qty: 5 1RF Referrals: Jeanie Samayoa MD [Primary Care Provider] - Stand Alone Forms: Patient Portal/API
[2024-01-28 19:27] LABS: Adenovirus Not Detected (Not Detect); B. parapertussis Not Detected (Not Detecte); Bordetella pertussis Not Detected (Not Detect); Chlamydophila pneumoniae Not Detected (Not Detect); Coronavirus 229E Not Detected (Not Detect); Coronavirus HKU1 Not Detected (Not Detect); Coronavirus NL 63 Not Detected (Not Detect); Coronavirus OC43 Not Detected (Not Detect); Human Metapneumovirus Not Detected (Not Detect); Human Rhinovirus/Enterovirus Detected (Not Detect); Influenza A Not Detected (Not Detect); Influenza B Not Detected (Not Detect); Mycoplasma pneumoniae Not Detected (Not Detect); Parainfluenza Virus 1 Not Detected (Not Detect); Parainfluenza Virus 2 Not Detected (Not Detect); Parainfluenza Virus 3 Not Detected (Not Detect); Parainfluenza Virus 4 Not Detected (Not Detect); Respiratory Syncytial Virus Not Detected (Not Detect); SARS- CoV-2 Not Detected (Not Detecte)
[2024-01-28 19:43] LABS: Add Manual Diff / Slide Review NO; Basophils Absolute Auto 0 /uL (0-100); Basophils Percent Auto 0.4 % (0-2); Eosinophils Absolute Auto 200 /uL (0-450); Hematocrit 39.8 % (36-46); Hemoglobin 13.5 g/dL (12.0-16.0); Lymphocytes Absolute Auto 2200 /uL (1100-4500); Lymphocytes Percent Auto 18.2 % (25-40); Mean Corpuscular HGB Conc 33.9 % (30-36); Mean Corpuscular Hemoglobin 32.2 PG (26-34); Monocytes Absolute Auto 900 /uL (0-900); Monocytes Percent Auto 7.7 % (3-14); Neutrophils Absolute Auto 8700 /uL (1500-7000); Neutrophils Percent Auto 71.7 % (50-75); Platelet Count 219 X10^3/uL (150-400); Red Blood Cell Count 4.19 X10^6/uL (4.0-5.2); Red Cell Distribution Width 14.2 % (11.6-14.8); White Blood Cell Count 12.1 X10^3/uL (4.5-11.0)
[2024-01-28 19:45] LABS: Alanine Aminotransferase 22 IU/L (<35); Albumin Globulin Ratio 1.2 (1.0-2.8); Alkaline Phosphatase 126 U/L (38-126); Aspartate Aminotransferase 29 IU/L (14-36); BUN Creatinine Ratio 8.9 (6-22); Bilirubin Total 0.6 mg/dL (0.2-1.3); Blood Urea Nitrogen 4 mg/dL (7-17); Calcium 9.2 mg/dL (8.4-10.2); Carbon Dioxide 19 mmol/L (22-32); Chloride 107 mmol/L (98-107); Estimated Glomerular Filt Rate > 60 mL/min (>60); Globulin 3.4 g/dL (1.7-4.1); Glucose 82 mg/dL (70-100); HEMOLYSIS < 15 (0-50); Potassium 3.9 mmol/L (3.4-5.1); Sodium 134 mmol/L (137-145); Total Protein 7.4 g/dL (6.3-8.2)
[2024-01-28] MEDS: ONDANSETRON 4 MG/2 ML INJ IV (19:46)
[2024-01-28] MEDS: ALBUTEROL HFA PREPACK 1 BOX MISC (19:50)
== END 2024-01-28 21:01 | disposition home or self-care (01) ==
PROVIDERS: Student in an Organized Health Care Education/Training Program; Emergency Provider Emergency Medicine; PCP Family Medicine
DX: O98.513 Other viral diseases complicating pregnancy, third trimester (principal); J06.9 Acute upper respiratory infection, unspecified; B34.8 Other viral infections of unspecified site; Z11.52 Encounter for screening for COVID-19; Z3A.34 34 weeks gestation of pregnancy
CPT/HCPCS: 36415; 80053; 85025; 87633; 96361; 96374; 99284; J2405